=== PATIENT | female | born 1990 | race Caucasian/White ===

== ENCOUNTER 2017-03-09 02:26 | Emergency (ER) | payer OTHER ==
--- NOTE | 2017-03-09 03:36 | EDM.PDOC ---
ED HPI GENERAL MEDICAL PROBLEM - General Chief Complaint: Back Pain or Injury Stated Complaint: BODY ACHES Time Seen by Provider: 03/09/17 03:00 Source of Information: Reports: Patient History Limitations: Reports: No Limitations - History of Present Illness INITIAL COMMENTS - FREE TEXT/NARRATIVE: 18-year-old female who is been exposed to cryptosporidium from her daughter has developed symptoms over the past 4 days. Very watery diarrhea and abdominal cramps, no generalized malaise and lower back pain. She had spike fevers 2 days ago but those resolved, her diarrhea has now slowing down as well but she does not feel like she is overall improving. She had dark stools today but that was after several days of Kaopectate and Pepto-Bismol 3 days ago. Nausea but no vomiting. Severity: Moderate Associated Symptoms: Reports: Fever/Chills (2 days ago), Loss of Appetite, Nausea/Vomiting. 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 Denies: Vomiting : Reports: No Symptoms Musculoskeletal: Reports: Muscle Pain (Especially her lower back) Skin: Reports: No Symptoms Neurological: Reports: No Symptoms. Denies: Headache Psychiatric: Reports: No Symptoms ED EXAM, GENERAL - Physical Exam Exam: See Below Exam Limited By: No Limitations General Appearance: Alert, No Apparent Distress (Looks uncomfortable but not in any acute distress) Respiratory/Chest: No Respiratory Distress Cardiovascular: Regular Rate, Rhythm GI/Abdominal: Normal Bowel Sounds, Soft, Non-Tender Rectal (Female) Exam: Normal Exam, Heme - Stool Neurological: Alert, Oriented Skin Exam: Warm Course - Vital Signs Last Recorded V/S: Last Vital Signs Temp 98.8 F 03/09/17 02:40 Pulse 88 03/09/17 02:40 Resp 16 03/09/17 02:40 BP 123/78 03/09/17 02:40 Pulse Ox 97 03/09/17 02:40 - Orders/Labs/Meds Labs: Laboratory Tests 03/09/17 03/09/17 Range/Units 03:08 03:08 WBC 14.7 H (4.5-11.0) K/uL RBC 4.70 (3.30-5.50) M/uL Hgb 14.4 (12.0-15.0) g/dL Hct 42.4 (36.0-48.0) % MCV 90 (80-98) fL MCH 31 (27-31) pg MCHC 34 (32-36) % Plt Count 285 (150-400) K/uL Neut % (Auto) 88 H (36-66) % Lymph % (Auto) 5 L (24-44) % [place] % (Auto) 5 (2-6) % Eos % (Auto) 2 (2-4) % Baso % (Auto) 0 (0-1) % Sodium 135 L (140-148) mmol/L Potassium 3.2 L (3.6-5.2) mmol/L Chloride 103 (100-108) mmol/L Carbon Dioxide 24 (21-32) mmol/L Anion Gap 11.2 (5.0-14.0) mmol/L BUN 8 (7-18) mg/dL Creatinine 0.7 (0.6-1.0) mg/dL Est Cr Clr Drug Dosing 125.04 mL/min Estimated GFR (MDRD) > 60 (>60) Glucose 95 (74-106) mg/dL Calcium 8.4 L (8.5-10.1) mg/dL - Re-Assessments/Exams Free Text/Narrative Re-Assessment/Exam: 03/09/17 03:31 Stool guaiac was obtained and was negative. CBC revealed a mild increase in her white blood cell count of 14,700, hemoglobin normal. Potassium was 3.2. Remaining labs are reassuring. 03/09/17 03:36 After discussing the lab results with the patient, it was agreed we will discharge her with 6 Vicodin to use for pain control today along with sublingual Zofran for as needed nausea control. She will recheck in 48 hours if not improving satisfactorily or return sooner if worsening. Departure - Departure Time of Disposition: 04:12 Disposition: Home, Self-Care 01 Condition: Fair Clinical Impression: Gastroenteritis due to Cryptosporidium - Discharge Information Instructions: Diarrhea, Adult, [id number] Referrals: PCP,None [Primary Care Provider] - Forms: ED Department Discharge Care Plan Goals: Rest, increase diet as tolerated concentrating on fluids. Use pain control as prescribed and Zofran for nausea if needed. Consider rechecking in 48 hours if not improving satisfactorily, or return sooner if worsening.
== END 2017-03-09 04:12 | disposition home or self-care (01) ==
LOC: JP.ED 02:26
DX: A07.2 Cryptosporidiosis (principal); F32.9 Major depressive disorder, single episode, unspecified; F17.210 Nicotine dependence, cigarettes, uncomplicated
CPT/HCPCS: 36415; 80048; 82272; 85025; 99284

== ENCOUNTER 2018-01-02 22:39 | Emergency (ER) | payer OTHER, BC ==
--- NOTE | 2018-01-02 23:36 | EDM.PDOC ---
ED HPI GENERAL MEDICAL PROBLEM - General Chief Complaint: General Stated Complaint: PNEUMONIA Time Seen by Provider: 01/02/18 23:27 Source of Information: Reports: Patient, RN Notes Reviewed History Limitations: Reports: No Limitations - History of Present Illness INITIAL COMMENTS - FREE TEXT/NARRATIVE: 27-year-old female presents emergency department today complaint of not feeling well she has headache, body aches, nausea with dry heaving she denies any shortness of breath or chest pain no GI symptomatologies denies any tick exposure does admit to excessive work with poor oral intake Headache Pain Score (Numeric/FACES): 10 - Related Data Allergies Allergy/AdvReac Type Severity Reaction Status Date / Time No Known Allergies Allergy Verified 01/02/18 22:55 Home Meds: Home Meds Sertraline HCl 150 mg PO DAILY 03/09/17 [History] Dextroamphetamine/Amphetamine [Adderall 10 mg Tablet] 10 mg PO DAILY 01/02/18 [ History] Past Medical History HEENT History: Reports: Impaired Vision Respiratory History: Reports: Asthma 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: Musculoskeletal History: Reports: Fracture Neurological History: Reports: Concussion, Migraines Psychiatric History: Reports: Depression - Infectious Disease History Infectious Disease History: Reports: Chicken Pox, Mononucleosis Social & Family History - Tobacco Use Smoking Status *Q: Current Every Day Smoker Years of Tobacco use: 15 Packs/Tins Daily: 0.5 - Caffeine Use Caffeine Use: Reports: Coffee - Recreational Drug Use Recreational Drug Use: No ED ROS GENERAL - Review of Systems Review Of Systems: See Below Constitutional: Reports: Fever, Chills (Feverish) HEENT: Denies: Vision Change Respiratory: Reports: No Symptoms Cardiovascular: Reports: No Symptoms GI/Abdominal: Reports: Nausea, Vomiting : Reports: No Symptoms Musculoskeletal: Reports: Muscle Pain Skin: Reports: No Symptoms Neurological: Reports: No Symptoms ED EXAM, GENERAL - Physical Exam Exam: See Below Free Text/Narrative:: General: Female, ill-appearing, alert and oriented x3 HEENT: head is atraumatic normocephalic, eyes pupils equal round reactive to light, sclera clear no conjunctivitis appreciated. Ears tympanic membranes clear and pires landmarks and light reflex are present bilaterally canals are clear. Nose no septal deviation, nares are clear, no blood present. Mouth mucosa is moist and pink no erythema or exudate noted in soft palate, tongue is midline uvula is midline , dentition is intact. Neck: Supple no thyromegaly no tracheal deviation. Can place her chin on her chest no meningeal signs Nodes: Cervical nodes subclavicular nodes nontender no palpable lymphadenopathy noted. Lungs: clear to auscultation bilaterally with symmetrical respirations, no adventitious noise appreciated. CV: Regular rate and rhythm S1 and S2 appreciated no murmurs rubs or gallops noted. Abdomen: Soft, nontender, no palpable masses or organomegaly appreciated, no distention no guarding bowel sounds are present, . Neuro: Cranial nerves II through XII grossly intact Skin: Warm and dry, intact Extremities: No lower extremity edema appreciated, pedal pulse is +2. Course - Vital Signs Last Recorded V/S: Last Vital Signs Temp 99.6 F 01/03/18 00:57 Pulse 85 01/03/18 00:57 Resp 16 01/03/18 00:57 BP 120/67 01/03/18 00:57 Pulse Ox 96 01/03/18 00:57 - Orders/Labs/Meds Orders: Active Orders 24 hr Category Date Time Status Peripheral IV Care [RC] . DIRECTED Care 01/02/18 23:34 Active UA W/MICROSCOPIC [URIN] Urgent Lab 01/03/18 01:29 Ordered Doxycycline [Vibramycin] 100 mg Med 01/03/18 01:30 Active Sodium Chloride 0.9% [Normal Saline] 100 ml IV ONETIME Sodium Chloride 0.9% [Saline Flush] Med 01/02/18 23:34 Active 10 ml FLUSH ASDIRECTED PRN Peripheral IV Insertion Adult [OM.PC] Urgent Oth 01/02/18 23:33 Ordered Medication Orders Doxycycline Hyclate 100 mg/ (Sodium Chloride) 100 mls @ 100 mls/hr IV ONETIME ONE Stop: 01/03/18 02:29 Last Admin: 01/03/18 01:36 Dose: 100 mls/hr Sodium Chloride (Saline Flush) 10 ml FLUSH ASDIRECTED PRN PRN Reason: Keep Vein Open Last Admin: 01/03/18 00:02 Dose: 10 ml Labs: Laboratory Tests 01/02/18 01/02/18 01/03/18 Range/Units 23:42 23:42 01:29 WBC 13.2 H (4.5-11.0) K/uL RBC 4.39 (3.30-5.50) M/uL Hgb 13.4 (12.0-15.0) g/dL Hct 40.7 (36.0-48.0) % MCV 93 (80-98) fL MCH 31 (27-31) pg MCHC 33 (32-36) % Plt Count 327 (150-400) K/uL Neut % (Auto) 82 H (36-66) % Lymph % (Auto) 11 L (24-44) % [place] % (Auto) 6 (2-6) % Eos % (Auto) 1 L (2-4) % Baso % (Auto) 0 (0-1) % Sodium 138 L (140-148) mmol/L Potassium 3.7 (3.6-5.2) mmol/L Chloride 101 (100-108) mmol/L Carbon Dioxide 26 (21-32) mmol/L Anion Gap 14.7 H (5.0-14.0) mmol/L BUN 12 (7-18) mg/dL Creatinine 0.8 (0.6-1.0) mg/dL Est Cr Clr Drug Dosing 108.44 mL/min Estimated GFR (MDRD) > 60 (>60) Glucose 105 (74-106) mg/dL Calcium 8.8 (8.5-10.1) mg/dL Urine Color Yellow Urine Appearance Clear Urine pH 6.5 (4.5-8.0) Ur Specific [place] 1.010 (1.008-1.030) Urine Protein Negative (NEGATIVE) mg/dL Urine Glucose (UA) Normal (NEGATIVE) mg/dL Urine Ketones Negative (NEGATIVE) mg/dL Urine Occult Blood Negative (NEGATIVE) Urine Nitrite Negative (NEGATIVE) Urine Bilirubin Negative (NEGATIVE) Urine Urobilinogen Normal (NORMAL) mg/dL Ur Leukocyte Esterase Negative (NEGATIVE) Urine RBC 0-5 (0-5) Urine WBC 0-5 (0-5) Ur Epithelial Cells Few Amorphous Sediment Not seen Urine Bacteria Rare Urine Mucus Not seen Meds: Medications Generic Name Dose Route Start Last Admin Trade Name Freq PRN Reason Stop Dose Admin Doxycycline Hyclate 100 mg/ 100 mls @ 100 mls/hr 01/03/18 01:30 01/03/18 01: 36 Sodium Chloride IV 01/03/18 02:29 100 mls/hr ONETIME ONE Administration Sodium Chloride 10 ml 01/02/18 23:34 01/03/18 00:02 Saline Flush FLUSH 10 ml ASDIRECTED PRN Administration Keep Vein Open Discontinued Medications Generic Name Dose Route Start Last Admin Trade Name Pumaq PRN Reason Stop Dose Admin Diphenhydramine HCl 50 mg 01/02/18 23:34 01/03/18 00:01 Benadryl IVPUSH 01/02/18 23:35 50 mg ONETIME ONE Administration Lactated Ringer's 1,000 mls @ 999 mls/hr 01/02/18 23:33 01/03/18 00:01 Ringers, Lactated IV 01/03/18 00:33 999 mls/hr BOLUS ONE Administration Lactated Ringer's 1,000 mls @ 999 mls/hr 01/03/18 01:00 01/03/18 01:04 Ringers, Lactated IV 01/03/18 02:00 999 mls/hr BOLUS ONE Administration Ketorolac Tromethamine 30 mg 01/02/18 23:33 01/03/18 00:02 Toradol IVPUSH 01/02/18 23:34 30 mg ONETIME ONE Administration Prochlorperazine Edisylate 5 mg 01/02/18 23:34 01/03/18 00:02 Compazine IVPUSH 01/02/18 23:35 5 mg ONETIME ONE Administration Departure - Departure Time of Disposition: 02:30 Disposition: Home, Self-Care 01 Condition: Good Clinical Impression: Body aches, Tick-borne disease - Discharge Information Referrals: PCP,None [Primary Care Provider] - Forms: ED Department Discharge Additional Instructions: Take full course of antibiotics, Please followup with your primary care provider in 3-5 days if not better, please call return to the emergency department with worsening of symptoms. - My Orders Last 24 Hours: My Active Orders 01/02/18 23:33 Peripheral IV Insertion Adult [OM.PC] Urgent 01/02/18 23:34 Peripheral IV Care [RC] . DIRECTED Sodium Chloride 0.9% [Saline Flush] 10 ml FLUSH ASDIRECTED PRN 01/03/18 01:29 UA W/MICROSCOPIC [URIN] Urgent 01/03/18 01:30 Doxycycline [Vibramycin] 100 mg Sodium Chloride 0.9% [Normal Saline] 100 ml IV ONETIME - Assessment/Plan Last 24 Hours: My Active Orders 01/02/18 23:33 Peripheral IV Insertion Adult [OM.PC] Urgent 01/02/18 23:34 Peripheral IV Care [RC] . DIRECTED Sodium Chloride 0.9% [Saline Flush] 10 ml FLUSH ASDIRECTED PRN 01/03/18 01:29 UA W/MICROSCOPIC [URIN] Urgent 01/03/18 01:30 Doxycycline [Vibramycin] 100 mg Sodium Chloride 0.9% [Normal Saline] 100 ml IV ONETIME Plan: Assessment Acuity = acute Site and laterality = body aches, fever Etiology = suspicious for tickborne illness Manifestations = none Location of injury = Home Lab values = white count elevated at 13.2 consistent leukocytosis, BMP unremarkable, urinalysis unremarkable Plan She was treated with one dose of doxycycline 100 mg 1 prescription written for doxycycline 100 mg by mouth twice a day 14 days follow-up primary care in 3-5 days if no improvement This note was dictated using [employer] voice recognition software please call with any questions on syntax or grammar.
[2018-01-03] MEDS: diphenhydrAMINE 50 MG/ML SDV IVPUSH ONE (00:01)
[2018-01-03] MEDS: Lactated Ringers 1,000 ML IV ONE ×2 (00:01→01:04)
[2018-01-03] MEDS: Sodium Chloride 0.9% 10 ML Syringe FLUSH PRN (00:02)
[2018-01-03] MEDS: Prochlorperazine 10 MG/2 ML SDV IVPUSH ONE (00:02)
[2018-01-03] MEDS: Ketorolac 30 MG/ML SDV IVPUSH ONE (00:02)
[2018-01-03] MEDS: Doxycycline 100 MG in Sodium Chloride 0.9% 100 ML IV ONE (01:36)
== END 2018-01-03 02:50 | disposition home or self-care (01) ==
LOC: JP.ED 22:39
DX: A93.8 Other specified arthropod-borne viral fevers (principal); F17.210 Nicotine dependence, cigarettes, uncomplicated
CPT/HCPCS: 36415; 80048; 81001; 85025; 96361; 96365; 96375; 99284-25; J0780; J1200; J1885; J3490; J7030; J7050; J7120

== ENCOUNTER 2018-01-03 10:43 | Inpatient (IN) | payer OTHER, BC ==
[2018-01-03] MEDS ORDERED: Sodium Chloride 0.9% 1,000 ML IV ONE (11:11)
[2018-01-03] MEDS ORDERED: HYDROmorphone 0.5 MG/0.5 ML Syringe IVPUSH ONE ×2 (11:11→13:42)
--- NOTE | 2018-01-03 11:17 | EDM.PDOC ---
ED HPI GENERAL MEDICAL PROBLEM - General Chief Complaint: General Stated Complaint: head and neck pain Time Seen by Provider: 01/03/18 11:05 Source of Information: Reports: Patient, Provider History Limitations: Reports: No Limitations - History of Present Illness INITIAL COMMENTS - FREE TEXT/NARRATIVE: 27-year-old female developed generalized malaise, body aches, headache and fever yesterday afternoon, was seen in the emergency room last night for an evaluation. She was started on doxycycline for suspected tick disease. She was feeling better after medications were given last night, but she was worse this morning so went over to the urgent care clinic and then was sent over to the emergency room. Her headache is persistent, frontal, she is nauseated but not vomiting. She denies a cough, shortness of breath, abdominal symptoms, rashes or joint pains. She does have generalized muscle discomfort. 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 History: Reports: Asthma 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: Musculoskeletal History: Reports: Fracture Neurological History: Reports: Concussion, Migraines Psychiatric History: Reports: Depression - Infectious Disease History Infectious Disease History: Reports: Chicken Pox, Mononucleosis Social & Family History - Tobacco Use Smoking Status *Q: Current Every Day Smoker Years of Tobacco use: 12 Packs/Tins Daily: 0.5 - Caffeine Use Caffeine Use: Reports: Coffee - Recreational Drug Use Recreational Drug Use: No ED ROS GENERAL - Review of Systems Review Of Systems: See Below Constitutional: Reports: Fever, Chills, Malaise, Decreased Appetite HEENT: Reports: Other (Some photophobia) Respiratory: Reports: No Symptoms Cardiovascular: Reports: No Symptoms GI/Abdominal: Reports: Nausea. Denies: Abdominal Pain, Diarrhea, Vomiting : Reports: No Symptoms Musculoskeletal: Reports: Neck Pain, Muscle Pain Skin: Denies: Rash Neurological: Reports: Headache. Denies: Dizziness ED EXAM, GENERAL - Physical Exam Exam: See Below Exam Limited By: No Limitations General Appearance: Alert, Mild Distress (Looks fairly uncomfortable) Eye Exam: Bilateral Eye: EOMI, PERRL Head: Atraumatic Neck: Limited Range of Motion (Tender with flexion and extension even passively) Respiratory/Chest: No Respiratory Distress GI/Abdominal: Soft, Non-Tender Neurological: Alert, Oriented, No Motor/Sensory Deficits Skin Exam: Warm, Dry Course - Vital Signs Last Recorded V/S: Last Vital Signs Temp 96.2 F 01/04/18 07:49 Pulse 73 01/04/18 10:00 Resp 13 01/04/18 10:00 BP 98/53 L 01/04/18 10:00 Pulse Ox 98 01/04/18 10:00 - Orders/Labs/Meds Orders: Active Orders 24 hr Category Date Time Status CULTURE CSF + SMEAR [RM] Stat Lab 01/03/18 12:36 Ordered ENTEROVIRUS RT-PCR Routine Lab 01/03/18 14:05 Received GLUCOSE,CSF [BF] Stat Lab 01/03/18 12:36 COMP HSV 1/2 PCR Routine Lab 01/03/18 14:05 Received LYME (B. BURGDORFERI) PCR Routine Lab 01/03/18 14:05 Received PROTEIN,CSF [BF] Stat Lab 01/03/18 12:36 COMP Medication Orders Acetaminophen (Tylenol) 650 mg PO Q4H PRN PRN Reason: Pain (Mild 1-3)/fever Last Admin: 01/04/18 07:44 Dose: 650 mg Admin: 01/04/18 03:26 Dose: 650 mg Admin: 01/03/18 21:15 Dose: 650 mg Admin: 01/03/18 15:48 Dose: 650 mg Hydromorphone HCl (Dilaudid) 0.5 mg IVPUSH Q2H PRN PRN Reason: Pain Last Admin: 01/04/18 08:39 Dose: 0.5 mg Admin: 01/04/18 04:00 Dose: 0.5 mg Admin: 01/04/18 02:02 Dose: 0.5 mg Admin: 01/03/18 23:58 Dose: 0.5 mg Admin: 01/03/18 21:52 Dose: 0.5 mg Admin: 01/03/18 20:02 Dose: 0.5 mg Admin: 01/03/18 16:46 Dose: 0.5 mg Acyclovir 800 mg/ Sodium (Chloride) 116 mls @ 116 mls/hr IV Q8H [facility] Last Admin: 01/04/18 07:28 Dose: 116 mls/hr Admin: 01/03/18 23:16 Dose: 116 mls/hr Admin: 01/03/18 16:42 Dose: 116 mls/hr Ceftriaxone Sodium 2 gm/ (Sodium Chloride) 50 mls @ 100 mls/hr IV Q12H [facility] Last Admin: 01/04/18 01:01 Dose: 100 mls/hr Vancomycin HCl 1.25 gm/ Sodium (Chloride) 250 mls @ 167 mls/hr IV Q8H [facility] Last Admin: 01/04/18 06:02 Dose: 167 mls/hr Admin: 01/03/18 21:10 Dose: 167 mls/hr Magnesium Sulfate 2 gm/ Premix 50 mls @ 25 mls/hr IV ONETIME ONE Stop: 01/04/18 11:59 Last Admin: 01/04/18 09:05 Dose: 25 mls/hr Sodium Chloride (Normal Saline) 1,000 mls @ 50 mls/hr IV ASDIRECTED [facility] Magnesium Hydroxide (Milk Of Magnesia) 30 ml PO Q12H PRN PRN Reason: Constipation Magnesium Oxide (Magnesium Oxide) 400 mg PO BID [facility] Last Admin: 01/04/18 09:05 Dose: 400 mg Nicotine (Habitrol) 14 mg TRDERM DAILY [facility] Last Admin: 01/04/18 10:06 Dose: Not Given Admin: 01/03/18 16:03 Dose: Ondansetron HCl (Zofran) 4 mg IV Q4H PRN PRN Reason: Nausea/Vomiting Last Admin: 01/04/18 01:01 Dose: 4 mg Senna/Docusate Sodium (Senna Plus) 1 tab PO BID PRN PRN Reason: Constipation Last Admin: 01/04/18 09:05 Dose: 1 tab Sodium Chloride (Saline Flush) 10 ml FLUSH ASDIRECTED PRN PRN Reason: Keep Vein Open Last Admin: 01/04/18 08:40 Dose: 10 ml Labs: Laboratory Tests 01/03/18 01/03/18 01/03/18 Range/Units 11:11 12:36 12:36 WBC 11.0 (4.5-11.0) K/uL RBC 4.12 (3.30-5.50) M/uL Hgb 12.5 (12.0-15.0) g/dL Hct 38.6 (36.0-48.0) % MCV 94 (80-98) fL MCH 30 (27-31) pg MCHC 32 (32-36) % Plt Count 314 (150-400) K/uL Neut % (Auto) 79 H (36-66) % Lymph % (Auto) 12 L (24-44) % [place] % (Auto) 8 H (2-6) % Eos % (Auto) 1 L (2-4) % Baso % (Auto) 0 (0-1) % CSF Tube Number 4 CSF Volume 0.5 mls CSF Appearance Clear (CLEAR) CSF Color [place] (COLORLESS) CSF WBC 122 H (0-5) /ul CSF RBC 2129 H (0-0) /ul CSF Mononuclear Cells 24 L (54-100) % CSF Polymorphonuclear 76 H (0-7) % CSF Glucose 63 (40-70) mg/dL CSF Total Protein 71.0 H (15-45) mg/dL Meds: Medications Generic Name Dose Route Start Last Admin Trade Name Freq PRN Reason Stop Dose Admin Acetaminophen 650 mg 01/03/18 15:05 01/04/18 07:44 Tylenol PO 650 mg Q4H PRN Administration Pain (Mild 1-3)/fever Hydromorphone HCl 0.5 mg 01/03/18 15:05 01/04/18 08:39 Dilaudid IVPUSH 0.5 mg Q2H PRN Administration Pain Acyclovir 800 mg/ Sodium 116 mls @ 116 mls/hr 01/03/18 15:30 01/04/18 07:28 Chloride IV 116 mls/hr Q8H [facility] Administration Ceftriaxone Sodium 2 gm/ 50 mls @ 100 mls/hr 01/04/18 02:00 01/04/18 01:01 Sodium Chloride IV 100 mls/hr Q12H [facility] Administration Vancomycin HCl 1.25 gm/ Sodium 250 mls @ 167 mls/hr 01/03/18 22:00 01/04/18 06:02 Chloride IV 167 mls/hr Q8H [facility] Administration Magnesium Sulfate 2 gm/ Premix 50 mls @ 25 mls/hr 01/04/18 10:00 01/04/18 09: 05 IV 01/04/18 11:59 25 mls/hr ONETIME ONE Administration Sodium Chloride 1,000 mls @ 50 mls/hr 01/04/18 08:45 Normal Saline IV ASDIRECTED [facility]ONATHAN Magnesium Hydroxide 30 ml 01/03/18 15:05 Milk Of Magnesia PO Q12H PRN Constipation Magnesium Oxide 400 mg 01/04/18 09:00 01/04/18 09:05 Magnesium Oxide PO 400 mg BID [facility] Administration Nicotine 14 mg 01/03/18 16:00 01/04/18 10:06 Habitrol TRDERM Not Given DAILY [facility] Ondansetron HCl 4 mg 01/03/18 15:05 01/04/18 01:01 Zofran IV 4 mg Q4H PRN Administration Nausea/Vomiting Senna/Docusate Sodium 1 tab 01/04/18 08:37 01/04/18 09:05 Senna Plus PO 1 tab BID PRN Administration Constipation Sodium Chloride 10 ml 01/03/18 15:05 01/04/18 08:40 Saline Flush FLUSH 10 ml ASDIRECTED PRN Administration Keep Vein Open Discontinued Medications Generic Name Dose Route Start Last Admin Trade Name Freq PRN Reason Stop Dose Admin Hydromorphone HCl 0.5 mg 01/03/18 11:11 01/03/18 11:22 Dilaudid IVPUSH 01/03/18 11:12 0.5 mg ONETIME ONE Administration Hydromorphone HCl 0.5 mg 01/03/18 13:42 01/03/18 13:54 Dilaudid IVPUSH 01/03/18 13:43 0.5 mg ONETIME ONE Administration Sodium Chloride 1,000 mls @ 999 mls/hr 01/03/18 11:11 01/03/18 11:23 Normal Saline IV 01/03/18 12:11 999 mls/hr ONETIME ONE Administration Ceftriaxone Sodium 1 gm/ 50 mls @ 100 mls/hr 01/03/18 13:12 01/03/18 13:17 Sodium Chloride IV 01/03/18 13:41 100 mls/hr ONETIME ONE Administration Ceftriaxone Sodium 1 gm/ 50 mls @ 100 mls/hr 01/03/18 13:21 01/03/18 13:55 Sodium Chloride IV 01/03/18 13:50 100 mls/hr ONETIME ONE Administration Vancomycin HCl 2 gm/ Sodium 500 mls @ 250 mls/hr 01/03/18 14:45 01/03/18 14: 39 Chloride IV 01/03/18 16:44 250 mls/hr ONETIME ONE Administration Sodium Chloride 1,000 mls @ 125 mls/hr 01/03/18 15:05 01/04/18 04:00 Normal Saline IV 125 mls/hr ASDIRECTED [facility]ONATHAN Administration Vancomycin HCl 1 gm 01/03/18 15:00 Vancomycin IV 01/03/18 16:00 .PHARMACY TO DOSE [facility]HONATHAN - Re-Assessments/Exams Free Text/Narrative Re-Assessment/Exam: 01/03/18 13:09 Patient was hydrated with a liter of fluid, and given 0.5 mg of IV Dilaudid. This provided very good pain control. CBC revealed now a normal white count. CT of the head was obtained which was negative, lumbar puncture was performed with an opening pressure of 26. There was no bacteria on Gram stain, however her protein was high and there was elevation of neutrophils percentage of the white count. 01/03/18 13:21 Reevaluated the patient, she still has a very significant headache. 2 g Rocephin were started, and I discussed her condition with the hospitalist service, and Dr. Xiao agreed to evaluate the patient for possible admission. Departure - Departure Time of Disposition: 15:16 Disposition: Admitted As Inpatient 64 Condition: Fair Clinical Impression: Meningitis - Discharge Information - My Orders Last 24 Hours: My Active Orders 01/03/18 12:36 CULTURE CSF + SMEAR [RM] Stat GLUCOSE,CSF [BF] Stat PROTEIN,CSF [BF] Stat - Assessment/Plan Last 24 Hours: My Active Orders 01/03/18 12:36 CULTURE CSF + SMEAR [RM] Stat GLUCOSE,CSF [BF] Stat PROTEIN,CSF [BF] Stat
--- NOTE | 2018-01-03 12:52 | CT ---
Head wo Cont CLINICAL HISTORY: Headache and fever COMPARISON: None TECHNIQUE: Transverse scans were obtained from the base of the skull through the vertex without IV co ntrast on a multislice, multidetector CT scanner. Auto dosage reduction and iterative reconstruction techniques employed. FINDINGS: No focal abnormal parenchymal densities identified. There is no mass effect, hemorrhage, or extraaxial collection. There is some prominence and generalized heterogeneity of the white matter Th e basal cisterns and sulci over the convexities are normal. The ventricles are normal. IMPRESSION: Generalized nonspecific, white matter heterogeneity. Active white matter process cannot be excluded. MRI pre and postcontrast should be considered.
[2018-01-03] MEDS ORDERED: cefTRIAXone 1 GM in Sodium Chloride 0.9% 50 ML IV ONE ×2 (13:12→13:21)
[2018-01-03] MEDS ORDERED: Vancomycin 1.7 GM in Sodium Chloride 0.9% 250 ML IV ONE (14:45)
[2018-01-03] MEDS ORDERED: Vancomycin 2 GM in Sodium Chloride 0.9% 500 ML IV ONE (14:45)
--- NOTE | 2018-01-03 14:58 | PCM.HP ---
H&P History of Present Illness - General Date of Service: 01/03/18 Admit Problem/Dx: Admission Diagnosis/Problem Admission Diagnosis/Problem Meningitis Source of Information: Patient, Provider, RN Notes Reviewed History Limitations: Reports: No Limitations - History of Present Illness Initial Comments - Free Text/Narative: Ms. Gatica is a 27-year-old woman who is admitted through the emergency department with severe headache and neck stiffness secondary to meningitis. She felt well until yesterday, about midday began to notice symptoms of headache and some nausea. Symptoms progressed through the day and she presented to the emergency department last night for further evaluation. At that time her white blood cell count was only modestly elevated and she felt better after IV fluids and pain medication. Was felt likely that she had Lyme disease, she was placed on doxycycline 100 mg by mouth twice a day. Symptoms further progressed during the night to where her headache has become extremely severe and she came back to the emergency department this morning for reevaluation. White blood cell count has now normalized, she has been afebrile with normal vital signs. CT scan of the head was obtained and showed no significant abnormalities. Lumbar puncture has been performed, showing mild elevation in protein level and white blood cell count, and a glucose level of 63. Gram stain shows no obvious bacteria, culture pending. She has had exposure to Lyme disease in the past but denies recent tick bites. She denies recent exposure to anybody with similar symptoms and has not traveled outside of [place] for some time. 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 Denies: Fever, Chills HEENT: Reports: No Symptoms, Other (No photophobia) Pulmonary: Reports: No Symptoms Cardiovascular: Reports: No Symptoms Gastrointestinal: Reports: Anorexia, Nausea. Denies: Abdominal Pain, Black Stool, Bloody Stool, Constipation, Diarrhea, Difficulty Swallowing, Distension, Vomiting Genitourinary: Reports: No Symptoms Musculoskeletal: Reports: Neck Pain Skin: Reports: No Symptoms Psychiatric: Reports: No Symptoms Neurological: Reports: No Symptoms Hematologic/Lymphatic: Reports: No Symptoms Immunologic: Reports: No Symptoms Exam - Exam Exam: See Below - Vital Signs Vital Signs: Last Vital Signs Temp 99 F 01/03/18 11:01 Pulse 71 01/03/18 13:50 Resp 16 01/03/18 13:50 BP 110/59 L 01/03/18 13:50 Pulse Ox 98 01/03/18 13:50 Weight: 183 lb 10.321 oz - Exam General: Alert, Oriented, Cooperative, Moderate Distress HEENT: PERRLA, Conjunctiva Clear, Hearing Intact, Mucosa Moist & [place], Normal Nasal Septum, Posterior Pharynx Clear Neck: Supple, Trachea Midline, +2 Carotid Pulse wo Bruit Lungs: Clear to Auscultation, Normal Respiratory Effort, Other (Pain to flexion) Cardiovascular: Regular Rate, Regular Rhythm, Normal S1, Normal S2. No: Systolic Murmur, Diastolic Murmur GI/Abdominal Exam: Soft, Non-Tender, No Organomegaly, No Distention Back Exam: Normal Inspection, Full Range of Motion Extremities: Non-Tender, No Pedal Edema Skin: Warm, Dry, Intact Neurological: Cranial Nerves Intact, Strength Equal Bilateral, Normal Speech, Normal Tone, Sensation Intact. No: Focal Deficit Neuro Extensive - Mental Status: Alert, Oriented x3, Normal Mood/Affect, Normal Cognition, Memory Intact - Patient Data Lab Results Last 24 hrs: Laboratory Results - last 24 hr 01/03/18 01/03/18 01/03/18 Range/Units 11:11 12:36 12:36 WBC 11.0 (4.5-11.0) K/uL RBC 4.12 (3.30-5.50) M/uL Hgb 12.5 (12.0-15.0) g/dL Hct 38.6 (36.0-48.0) % MCV 94 (80-98) fL MCH 30 (27-31) pg MCHC 32 (32-36) % Plt Count 314 (150-400) K/uL Neut % (Auto) 79 H (36-66) % Lymph % (Auto) 12 L (24-44) % [place] % (Auto) 8 H (2-6) % Eos % (Auto) 1 L (2-4) % Baso % (Auto) 0 (0-1) % CSF Tube Number 4 CSF Volume 0.5 mls CSF Appearance Clear (CLEAR) CSF Color [place] (COLORLESS) CSF WBC 122 H (0-5) /ul CSF RBC 2129 H (0-0) /ul CSF Mononuclear Cells 24 L (54-100) % CSF Polymorphonuclear 76 H (0-7) % CSF Glucose 63 (40-70) mg/dL CSF Total Protein 71.0 H (15-45) mg/dL Result Diagrams: 01/03/18 11:11 [place] Results Last 24 hrs: Microbiology 01/03/18 12:36 Gram Stain - Final Cerebral Spinal Fluid *Q Meaningful Use (ADM) - VTE Risk Assess *Q Each Risk Factor Represents 1 Point: None Total Score 1 Point Risk Factors: 0 Each Risk Factor Represents 2 Points: None Total Score 2 Point Risk Factors: 0 Each Risk Factor Represents 3 Points: None Total Score 3 Point Risk Factors: 0 Each Risk Factor Represents 5 Points: None Total Score 5 Point Risk Factors: 0 Venous Thromboembolism Risk Factor Score *Q: 0 Problem List Initiated/Reviewed/Updated: Yes Orders Last 24hrs: Active Orders 24 hr Category Date Time Status Patient Status Manage Transfer [TRANSFER] Routine ADT 01/03/18 14:24 Active CELL COUNT,CSF [BF] Stat Lab 01/03/18 12:36 Ordered CULTURE CSF + SMEAR [RM] Stat Lab 01/03/18 12:36 Ordered ENTEROVIRUS RT-PCR Routine Lab 01/03/18 14:05 Received GLUCOSE,CSF [BF] Stat Lab 01/03/18 12:36 COMP HSV 1/2 PCR Routine Lab 01/03/18 14:05 Received LYME (B. BURGDORFERI) PCR Routine Lab 01/03/18 14:05 Received PROTEIN,CSF [BF] Stat Lab 01/03/18 12:36 COMP Acyclovir [Zovirax] 800 mg Med 01/03/18 14:50 Ordered Sodium Chloride 0.9% [Normal Saline] 100 ml IV Q8HR Vancomycin Med 01/03/18 15:00 Active 1 gm IV .PHARMACY TO DOSE Vancomycin 2 gm Med 01/03/18 14:45 Active Sodium Chloride 0.9% [Normal Saline] 500 ml IV ONETIME Resuscitation Status Routine Resus Stat 01/03/18 14:25 Ordered Medication Orders Vancomycin HCl 2 gm/ Sodium (Chloride) 500 mls @ 250 mls/hr IV ONETIME ONE Stop: 01/03/18 16:44 Last Admin: 01/03/18 14:39 Dose: 250 mls/hr Acyclovir 800 mg/ Sodium (Chloride) 116 mls @ 116 mls/hr IV Q8HR JHONATHAN Vancomycin HCl (Vancomycin) 1 gm IV .PHARMACY TO DOSE JHONATHAN Stop: 01/03/18 16:00 Assessment/Plan Comment:: ASSESSMENT AND PLAN MENINGITIS-severe headache with neck stiffness, no decreased level of consciousness or focal neurologic findings. CSF results are indeterminate. Possible viral versus Lyme disease, less likely bacterial or herpes. -CSF culture pending -CSF PCR for herpes, Lymes, and enterovirus pending -IV fluids for hydration -Admit to ICU for close monitoring -Pain medication as needed -Neuro checks every 2 hours -Acyclovir 800 mg IV every 8 hours pending herpes virus PCR -IV vancomycin and Rocephin 2 g every 12 hours pending CSF culture results MAINTENANCE ISSUES -DVT prophylaxis; not required -GI prophylaxis; not indicated -Mccurdy catheter; not indicated -Nutrition; regular diet -Nicotine dependence; 14 g nicotine patch CODE STATUS-FULL CODE ADMISSION STATUS-patient will be admitted to inpatient status, expect at least a 2 night hospital stay for evaluation and management of problems as outlined above. At the time of this admission I do not reasonably expected evaluation and management of this problem will require more than a 96 hour hospital stay. DISPOSITION-anticipate discharge to home after the hospital stay. PRIMARY CARE PROVIDER-
[2018-01-03] MEDS ORDERED: Vancomycin 1 GM SDV IV SCH (15:00)
[2018-01-03] MEDS: Acetaminophen 325 MG Tab PO PRN ×2 (15:48→21:15)
[2018-01-03] MEDS: Sodium Chloride 0.9% 1,000 ML IV SCH (16:01)
[2018-01-03] MEDS: Nicotine 14 MG/24 Hr Patch TRDERM SCH (16:03)
[2018-01-03] MEDS: HYDROmorphone 0.5 MG/0.5 ML Syringe IVPUSH PRN ×4 (16:46→23:58)
[2018-01-04] MEDS: cefTRIAXone 2 GM in Sodium Chloride 0.9% 50 ML IV SCH ×2 (01:01→13:27)
[2018-01-04] MEDS: Ondansetron 4 MG/2 ML SDV IV PRN ×2 (01:01→14:12)
[2018-01-04] MEDS: HYDROmorphone 0.5 MG/0.5 ML Syringe IVPUSH PRN ×7 (02:02→21:43)
[2018-01-04] MEDS: Acetaminophen 325 MG Tab PO PRN ×4 (03:26→19:23)
[2018-01-04] MEDS: Sodium Chloride 0.9% 1,000 ML IV SCH (04:00)
[2018-01-04] MEDS: Sodium Chloride 0.9% 10 ML Syringe FLUSH PRN ×2 (08:40→17:23)
--- NOTE | 2018-01-04 08:41 | PCM.PN ---
- General Info Date of Service: 01/04/18 Subjective Update: Ms. Gatica has improved since admission, headache is not resolved but has improved from yesterday. Vital signs have been good and she has remained afebrile. CSF cultures and other studies are still pending at this time. Functional Status: Reports: Pain Controlled, Urinating - Review of Systems General: Reports: Weakness. Denies: Fever, Chills Pulmonary: Reports: No Symptoms Cardiovascular: Reports: No Symptoms Gastrointestinal: Reports: Nausea. Denies: Abdominal Pain, Difficulty Swallowing, Vomiting - Patient Data Vitals - Most Recent: Last Vital Signs Temp 96.2 F 01/04/18 07:49 Pulse 75 01/04/18 07:49 Resp 12 01/04/18 07:49 BP 101/56 L 01/04/18 07:49 Pulse Ox 98 01/04/18 07:49 Weight - Most Recent: 183 lb 10.321 oz I&O - Last 24 Hours: Intake & Output 01/03/18 01/04/18 01/04/18 22:59 06:59 14:59 Intake Total 627 1641 116 Output Total 650 450 350 Balance -23 1191 -234 Lab Results Last 24 Hours: Laboratory Results - last 24 hr 01/03/18 01/03/18 01/03/18 Range/Units 11:11 12:36 12:36 WBC 11.0 (4.5-11.0) K/uL RBC 4.12 (3.30-5.50) M/uL Hgb 12.5 (12.0-15.0) g/dL Hct 38.6 (36.0-48.0) % MCV 94 (80-98) fL MCH 30 (27-31) pg MCHC 32 (32-36) % Plt Count 314 (150-400) K/uL Neut % (Auto) 79 H (36-66) % Lymph % (Auto) 12 L (24-44) % [place] % (Auto) 8 H (2-6) % Eos % (Auto) 1 L (2-4) % Baso % (Auto) 0 (0-1) % Sodium (140-148) mmol/L Potassium (3.6-5.2) mmol/L Chloride (100-108) mmol/L Carbon Dioxide (21-32) mmol/L Anion Gap (5.0-14.0) mmol/L BUN (7-18) mg/dL Creatinine (0.6-1.0) mg/dL Est Cr Clr Drug Dosing mL/min Estimated GFR (MDRD) (>60) Glucose (74-106) mg/dL Calcium (8.5-10.1) mg/dL Magnesium (1.8-2.4) mg/dL Total Bilirubin (0.2-1.0) mg/dL AST (15-37) U/L ALT (12-78) U/L Alkaline Phosphatase (46-116) U/L Total Protein (6.4-8.2) g/dL Albumin (3.4-5.0) g/dL Globulin (2.3-3.5) g/dL Albumin/Globulin Ratio (1.2-2.2) HCG, Qual CSF Tube Number 4 CSF Volume 0.5 mls CSF Appearance Clear (CLEAR) CSF Color [place] (COLORLESS) CSF WBC 122 H (0-5) /ul CSF RBC 2129 H (0-0) /ul CSF Mononuclear Cells 24 L (54-100) % CSF Polymorphonuclear 76 H (0-7) % CSF Glucose 63 (40-70) mg/dL CSF Total Protein 71.0 H (15-45) mg/dL 01/03/18 01/04/18 01/04/18 Range/Units 15:05 04:32 04:32 WBC 9.3 (4.5-11.0) K/uL RBC 3.48 (3.30-5.50) M/uL Hgb 10.7 L (12.0-15.0) g/dL Hct 33.2 L (36.0-48.0) % MCV 95 (80-98) fL MCH 31 (27-31) pg MCHC 32 (32-36) % Plt Count 242 (150-400) K/uL Neut % (Auto) 77 H (36-66) % Lymph % (Auto) 14 L (24-44) % [place] % (Auto) 7 H (2-6) % Eos % (Auto) 2 (2-4) % Baso % (Auto) 0 (0-1) % Sodium 138 L (140-148) mmol/L Potassium 3.9 (3.6-5.2) mmol/L Chloride 105 (100-108) mmol/L Carbon Dioxide 26 (21-32) mmol/L Anion Gap 10.9 (5.0-14.0) mmol/L BUN 5 L D (7-18) mg/dL Creatinine 0.6 (0.6-1.0) mg/dL Est Cr Clr Drug Dosing 144.58 mL/min Estimated GFR (MDRD) > 60 (>60) Glucose 105 (74-106) mg/dL Calcium 7.8 L (8.5-10.1) mg/dL Magnesium 1.7 L (1.8-2.4) mg/dL Total Bilirubin 0.4 (0.2-1.0) mg/dL AST 13 L (15-37) U/L ALT 21 (12-78) U/L Alkaline Phosphatase 43 L (46-116) U/L Total Protein 5.1 L (6.4-8.2) g/dL Albumin 2.7 L (3.4-5.0) g/dL Globulin 2.4 (2.3-3.5) g/dL Albumin/Globulin Ratio 1.1 L (1.2-2.2) HCG, Qual Negative CSF Tube Number CSF Volume mls CSF Appearance (CLEAR) CSF Color (COLORLESS) CSF WBC (0-5) /ul CSF RBC (0-0) /ul CSF Mononuclear Cells (54-100) % CSF Polymorphonuclear (0-7) % CSF Glucose (40-70) mg/dL CSF Total Protein (15-45) mg/dL [place] Results Last 24 Hours: Microbiology 01/03/18 12:36 Gram Stain - Final Cerebral Spinal Fluid Med Orders - Current: Current Medications Acetaminophen (Tylenol) 650 mg PO Q4H PRN PRN Reason: Pain (Mild 1-3)/fever Last Admin: 01/04/18 07:44 Dose: 650 mg Hydromorphone HCl (Dilaudid) 0.5 mg IVPUSH Q2H PRN PRN Reason: Pain Last Admin: 01/04/18 04:00 Dose: 0.5 mg Acyclovir 800 mg/ Sodium (Chloride) 116 mls @ 116 mls/hr IV Q8H JHONATHAN Last Admin: 01/04/18 07:28 Dose: 116 mls/hr Ceftriaxone Sodium 2 gm/ (Sodium Chloride) 50 mls @ 100 mls/hr IV Q12H JHONATHAN Last Admin: 01/04/18 01:01 Dose: 100 mls/hr Vancomycin HCl 1.25 gm/ Sodium (Chloride) 250 mls @ 167 mls/hr IV Q8H ON LICENSE OF [facility] Last Admin: 01/04/18 06:02 Dose: 167 mls/hr Magnesium Sulfate 2 gm/ Premix 50 mls @ 25 mls/hr IV ONETIME ONE Stop: 01/04/18 10:07 Sodium Chloride (Normal Saline) 1,000 mls @ 50 mls/hr IV ASDIRECTED ON LICENSE OF [facility] Magnesium Hydroxide (Milk Of Magnesia) 30 ml PO Q12H PRN PRN Reason: Constipation Magnesium Oxide (Magnesium Oxide) 400 mg PO BID ON LICENSE OF [facility] Nicotine (Habitrol) 14 mg TRDERM DAILY ON LICENSE OF [facility] Last Admin: 01/03/18 16:03 Dose: Not Given Ondansetron HCl (Zofran) 4 mg IV Q4H PRN PRN Reason: Nausea/Vomiting Last Admin: 01/04/18 01:01 Dose: 4 mg Senna/Docusate Sodium (Senna Plus) 1 tab PO BID PRN PRN Reason: Constipation Sodium Chloride (Saline Flush) 10 ml FLUSH ASDIRECTED PRN PRN Reason: Keep Vein Open Discontinued Medications Hydromorphone HCl (Dilaudid) 0.5 mg IVPUSH ONETIME ONE Stop: 01/03/18 11:12 Last Admin: 01/03/18 11:22 Dose: 0.5 mg Hydromorphone HCl (Dilaudid) 0.5 mg IVPUSH ONETIME ONE Stop: 01/03/18 13:43 Last Admin: 01/03/18 13:54 Dose: 0.5 mg Sodium Chloride (Normal Saline) 1,000 mls @ 999 mls/hr IV ONETIME ONE Stop: 01/03/18 12:11 Last Admin: 01/03/18 11:23 Dose: 999 mls/hr Ceftriaxone Sodium 1 gm/ (Sodium Chloride) 50 mls @ 100 mls/hr IV ONETIME ONE Stop: 01/03/18 13:41 Last Admin: 01/03/18 13:17 Dose: 100 mls/hr Ceftriaxone Sodium 1 gm/ (Sodium Chloride) 50 mls @ 100 mls/hr IV ONETIME ONE Stop: 01/03/18 13:50 Last Admin: 01/03/18 13:55 Dose: 100 mls/hr Vancomycin HCl 2 gm/ Sodium (Chloride) 500 mls @ 250 mls/hr IV ONETIME ONE Stop: 01/03/18 16:44 Last Admin: 01/03/18 14:39 Dose: 250 mls/hr Sodium Chloride (Normal Saline) 1,000 mls @ 125 mls/hr IV ASDIRECTED ON LICENSE OF [facility] Last Admin: 01/04/18 04:00 Dose: 125 mls/hr Vancomycin HCl (Vancomycin) 1 gm IV .PHARMACY TO DOSE JHONATHAN Stop: 01/03/18 16:00 - Exam General: Alert, Oriented, Cooperative, Mild Distress Lungs: Clear to Auscultation, Normal Respiratory Effort Cardiovascular: Regular Rate, Regular Rhythm, No Murmurs GI/Abdominal Exam: Soft, Non-Tender, No Organomegaly, No Distention Extremities: Non-Tender, No Pedal Edema Skin: Warm, Dry - Problem List Review Problem List Initiated/Reviewed/Updated: Yes - My Orders Last 24 Hours: My Active Orders 01/03/18 14:05 ENTEROVIRUS RT-PCR Routine HSV 1/2 PCR Routine LYME (B. BURGDORFERI) PCR Routine 01/03/18 14:25 Resuscitation Status Routine 01/03/18 15:05 Patient Status [ADT] Routine Ambulate [RC] QID Cardiac Monitoring [RC] .As Directed Height and Weight [RC] DAILY Intake and Output [RC] QSHIFT Neuro Check [RC] Q2H Notify Provider Vital Signs [RC] ASDIRECTED Peripheral IV Care [RC] . DIRECTED Pulse Oximetry [RC] CONTINUOUS Up With Assistance [RC] ASDIRECTED Up to Chair [RC] QID VTE/DVT Education [RC] Per Unit Routine Vital Signs [RC] Q2H Acetaminophen [Tylenol] 650 mg PO Q4H PRN HYDROmorphone [Dilaudid] 0.5 mg IVPUSH Q2H PRN Magnesium Hydroxide [Milk of Magnesia] 30 ml PO Q12H PRN Ondansetron [Zofran] 4 mg IV Q4H PRN Sodium Chloride 0.9% [Saline Flush] 10 ml FLUSH ASDIRECTED PRN Peripheral IV Insertion Adult [OM.PC] Routine 01/03/18 15:30 Acyclovir [Zovirax] 800 mg Sodium Chloride 0.9% [Normal Saline] 100 ml IV Q8H 01/03/18 16:00 Nicotine [Habitrol] 14 mg TRDERM DAILY 01/03/18 22:00 Vancomycin 1.25 gm Sodium Chloride 0.9% [Normal Saline] 250 ml IV Q8H 01/03/18 Lunch Regular Diet [DIET] 01/04/18 02:00 cefTRIAXone [Rocephin] 2 gm Sodium Chloride 0.9% [Normal Saline] 50 ml IV Q12H 01/04/18 08:08 Magnesium Sulfate/Water [Magnesium Sulfate 2 GM in Water 50 ML] 2 gm Premix Bag 1 bag IV ONETIME 01/04/18 08:37 Docusate Sodium/Sennosides [Senna Plus] 1 tab PO BID PRN 01/04/18 08:45 Sodium Chloride 0.9% [Normal Saline] 1,000 ml IV ASDIRECTED 01/04/18 09:00 Magnesium Oxide 400 mg PO BID 01/05/18 05:00 BASIC METABOLIC PANEL,BMP [CHEM] Timed CBC WITH AUTO DIFF [HEME] Timed MAGNESIUM [CHEM] Timed - Plan Plan:: ASSESSMENT AND PLAN MENINGITIS-severe headache with neck stiffness, no decreased level of consciousness or focal neurologic findings. CSF results are indeterminate. Possible viral versus Lyme disease, less likely bacterial or herpes. Mild to moderate improvement since admission, headache better than yesterday but continues to experience nausea. -CSF culture pending -CSF PCR for herpes, Lymes, and enterovirus pending -IV fluids for hydration -Admit to ICU for close monitoring -Pain medication as needed -Neuro checks every 4 hours -Acyclovir 800 mg IV every 8 hours pending herpes virus PCR -IV vancomycin and Rocephin 2 g every 12 hours pending CSF culture results MAINTENANCE ISSUES -DVT prophylaxis; not required -GI prophylaxis; not indicated -Mccurdy catheter; not indicated -Nutrition; regular diet -Nicotine dependence; 14 g nicotine patch CODE STATUS-FULL CODE ADMISSION STATUS-patient will be admitted to inpatient status, expect at least a 2 night hospital stay for evaluation and management of problems as outlined above. At the time of this admission I do not reasonably expected evaluation and management of this problem will require more than a 96 hour hospital stay. DISPOSITION-anticipate discharge to home after the hospital stay. PRIMARY CARE PROVIDER-
[2018-01-04] MEDS ORDERED: Sodium Chloride 0.9% 1,000 ML IV SCH (08:45)
[2018-01-04] MEDS: Magnesium Oxide 400 MG Tab PO SCH ×2 (09:05→21:08)
[2018-01-04] MEDS ORDERED: Magnesium Sulfate/Water 2 GM in Premix Bag 1 BAG IV ONE (10:00)
[2018-01-04] MEDS: Nicotine 14 MG/24 Hr Patch TRDERM SCH (10:06)
[2018-01-04] MEDS ORDERED: cefTRIAXone 2 GM in Sodium Chloride 0.9% 50 ML IV SCH (14:00)
[2018-01-04] MEDS ORDERED: HYDROmorphone 0.5 MG/0.5 ML Syringe IVPUSH ONE (15:45)
[2018-01-04] MEDS ORDERED: LORazepam 2 MG/ML SDV IVPUSH PRN (17:08)
[2018-01-04] MEDS: Ketorolac 30 MG/ML SDV IVPUSH PRN (21:07)
[2018-01-05] MEDS: cefTRIAXone 2 GM in Sodium Chloride 0.9% 50 ML IV SCH ×2 (01:51→22:33)
[2018-01-05] MEDS: Ketorolac 30 MG/ML SDV IVPUSH PRN ×3 (04:08→23:38)
[2018-01-05] MEDS: Acetaminophen 325 MG Tab PO PRN ×2 (04:58→14:15)
[2018-01-05] MEDS: Nicotine 14 MG/24 Hr Patch TRDERM SCH (08:50)
[2018-01-05] MEDS: Magnesium Oxide 400 MG Tab PO SCH ×2 (08:55→22:33)
[2018-01-05] MEDS: Bisacodyl 10 MG Supp RECTAL PRN ×2 (08:58→18:23)
--- NOTE | 2018-01-05 09:39 | PCM.PN ---
- General Info Date of Service: 01/05/18 Subjective Update: Ms. Gatica shown further improvement over the last 24 hours, nausea has essentially resolved but she is dealing with some constipation. Headache was more severe again last night but significantly improved this morning, denies any neurologic symptoms other than the headache. CSF culture is negative after 24 hours. Functional Status: Reports: Pain Controlled, Tolerating Diet, Ambulating, Urinating - Review of Systems General: Denies: Fever, Chills Pulmonary: Reports: No Symptoms Cardiovascular: Reports: No Symptoms Gastrointestinal: Reports: No Symptoms Neurological: Reports: Headache. Denies: Confusion, Dizziness, Numbness, Trouble Speaking, Difficulty Walking, Weakness - Patient Data Vitals - Most Recent: Last Vital Signs Temp 95.9 F 01/05/18 07:49 Pulse 55 L 01/05/18 07:49 Resp 16 01/05/18 07:49 BP 115/74 01/05/18 07:49 Pulse Ox 98 01/05/18 07:49 Weight - Most Recent: 194 lb 1.6 oz I&O - Last 24 Hours: Intake & Output 01/04/18 01/05/18 01/05/18 22:59 06:59 14:59 Intake Total 1355 1115 116 Output Total 513 827 3693 Balance 1030 215 -959 Lab Results Last 24 Hours: Laboratory Results - last 24 hr 01/05/18 01/05/18 01/05/18 Range/Units 04:45 04:45 04:45 WBC 8.0 (4.5-11.0) K/uL RBC 3.71 (3.30-5.50) M/uL Hgb 11.3 L (12.0-15.0) g/dL Hct 36.0 (36.0-48.0) % MCV 97 (80-98) fL MCH 31 (27-31) pg MCHC 31 L (32-36) % Plt Count 246 (150-400) K/uL Neut % (Auto) 69 H (36-66) % Lymph % (Auto) 19 L (24-44) % [place] % (Auto) 6 (2-6) % Eos % (Auto) 6 H (2-4) % Baso % (Auto) 1 (0-1) % Sodium 141 (140-148) mmol/L Potassium 4.1 (3.6-5.2) mmol/L Chloride 107 (100-108) mmol/L Carbon Dioxide 28 (21-32) mmol/L Anion Gap 6.1 (5.0-14.0) mmol/L BUN 6 L (7-18) mg/dL Creatinine 0.7 (0.6-1.0) mg/dL Est Cr Clr Drug Dosing 123.48 mL/min Estimated GFR (MDRD) > 60 (>60) Glucose 95 (74-106) mg/dL Calcium 8.4 L (8.5-10.1) mg/dL Magnesium 2.0 (1.8-2.4) mg/dL Vancomycin Trough 11.9 (10.0-20.0) ug/mL [place] Results Last 24 Hours: Microbiology 01/03/18 12:36 Gram Stain - Final Cerebral Spinal Fluid CSF Culture - Preliminary NO GROWTH AFTER 1 DAY Med Orders - Current: Current Medications Acetaminophen (Tylenol) 650 mg PO Q4H PRN PRN Reason: Pain (Mild 1-3)/fever Last Admin: 01/05/18 04:58 Dose: 650 mg Bisacodyl (Dulcolax) 10 mg RECTAL BID PRN PRN Reason: Constipation Last Admin: 01/05/18 08:58 Dose: 10 mg Hydromorphone HCl (Dilaudid) 0.5 mg IVPUSH Q2H PRN PRN Reason: Pain Last Admin: 01/04/18 21:43 Dose: 0.5 mg Acyclovir 800 mg/ Sodium (Chloride) 116 mls @ 116 mls/hr IV Q8H [facility] Last Admin: 01/05/18 07:52 Dose: 116 mls/hr Ceftriaxone Sodium 2 gm/ (Sodium Chloride) 50 mls @ 100 mls/hr IV Q24H [facility] Ketorolac Tromethamine (Toradol) 30 mg IVPUSH Q6H PRN PRN Reason: Headache/Pain Stop: 01/09/18 20:50 Last Admin: 01/05/18 04:08 Dose: 30 mg Lorazepam (Ativan) 0.5 mg IVPUSH Q2H PRN PRN Reason: Nausea Last Admin: 01/04/18 17:21 Dose: 0.5 mg Magnesium Hydroxide (Milk Of Magnesia) 30 ml PO Q12H PRN PRN Reason: Constipation Magnesium Oxide (Magnesium Oxide) 400 mg PO BID [facility] Last Admin: 01/05/18 08:55 Dose: 400 mg Nicotine (Habitrol) 14 mg TRDERM DAILY [facility] Last Admin: 01/05/18 08:50 Dose: Not Given Ondansetron HCl (Zofran) 4 mg IV Q4H PRN PRN Reason: Nausea/Vomiting Last Admin: 01/04/18 14:12 Dose: 4 mg Senna/Docusate Sodium (Senna Plus) 1 tab PO BID PRN PRN Reason: Constipation Last Admin: 01/05/18 04:58 Dose: 1 tab Sodium Chloride (Saline Flush) 10 ml FLUSH ASDIRECTED PRN PRN Reason: Keep Vein Open Last Admin: 01/04/18 17:23 Dose: 10 ml Discontinued Medications Hydromorphone HCl (Dilaudid) 0.5 mg IVPUSH ONETIME ONE Stop: 01/03/18 11:12 Last Admin: 01/03/18 11:22 Dose: 0.5 mg Hydromorphone HCl (Dilaudid) 0.5 mg IVPUSH ONETIME ONE Stop: 01/03/18 13:43 Last Admin: 01/03/18 13:54 Dose: 0.5 mg Hydromorphone HCl (Dilaudid) 0.5 mg IVPUSH ONETIME ONE Stop: 01/04/18 15:46 Last Admin: 01/04/18 16:20 Dose: 0.5 mg Sodium Chloride (Normal Saline) 1,000 mls @ 999 mls/hr IV ONETIME ONE Stop: 01/03/18 12:11 Last Admin: 01/03/18 11:23 Dose: 999 mls/hr Ceftriaxone Sodium 1 gm/ (Sodium Chloride) 50 mls @ 100 mls/hr IV ONETIME ONE Stop: 01/03/18 13:41 Last Admin: 01/03/18 13:17 Dose: 100 mls/hr Ceftriaxone Sodium 1 gm/ (Sodium Chloride) 50 mls @ 100 mls/hr IV ONETIME ONE Stop: 01/03/18 13:50 Last Admin: 01/03/18 13:55 Dose: 100 mls/hr Vancomycin HCl 2 gm/ Sodium (Chloride) 500 mls @ 250 mls/hr IV ONETIME ONE Stop: 01/03/18 16:44 Last Admin: 01/03/18 14:39 Dose: 250 mls/hr Sodium Chloride (Normal Saline) 1,000 mls @ 125 mls/hr IV ASDIRECTED [facility] Last Admin: 01/04/18 04:00 Dose: 125 mls/hr Ceftriaxone Sodium 2 gm/ (Sodium Chloride) 50 mls @ 100 mls/hr IV Q12H [facility] Last Admin: 01/05/18 01:51 Dose: 100 mls/hr Vancomycin HCl 1.25 gm/ Sodium (Chloride) 250 mls @ 167 mls/hr IV Q8H [facility] Last Admin: 01/05/18 05:45 Dose: 167 mls/hr Magnesium Sulfate 2 gm/ Premix 50 mls @ 25 mls/hr IV ONETIME ONE Stop: 01/04/18 11:59 Last Admin: 01/04/18 09:05 Dose: 25 mls/hr Sodium Chloride (Normal Saline) 1,000 mls @ 50 mls/hr IV ASDIRECTED [facility] Last Admin: 01/05/18 04:09 Dose: 50 mls/hr Vancomycin HCl 1.75 gm/ Sodium (Chloride) 250 mls @ 167 mls/hr IV Q8H [facility] Vancomycin HCl (Vancomycin) 1 gm IV .PHARMACY TO DOSE [facility] Stop: 01/03/18 16:00 - Exam General: Alert, Oriented, Cooperative, Mild Distress Lungs: Clear to Auscultation, Normal Respiratory Effort Cardiovascular: Regular Rate, Regular Rhythm, No Murmurs GI/Abdominal Exam: Soft, Non-Tender, No Organomegaly, No Distention Back Exam: Normal Inspection, Full Range of Motion Extremities: Non-Tender, No Pedal Edema - Problem List Review Problem List Initiated/Reviewed/Updated: Yes - My Orders Last 24 Hours: My Active Orders 01/04/18 08:37 Docusate Sodium/Sennosides [Senna Plus] 1 tab PO BID PRN 01/04/18 09:00 Magnesium Oxide 400 mg PO BID 01/04/18 17:08 LORazepam [Ativan] 0.5 mg IVPUSH Q2H PRN 01/04/18 20:50 Ketorolac [Toradol] 30 mg IVPUSH Q6H PRN 01/05/18 08:50 Bisacodyl [Dulcolax] 10 mg RECTAL BID PRN 01/05/18 09:32 Patient Status [ADT] Routine Convert IV to Saline Lock [OM.PC] Routine 01/05/18 09:45 cefTRIAXone [Rocephin] 2 gm Sodium Chloride 0.9% [Normal Saline] 50 ml IV Q24H - Plan Plan:: ASSESSMENT AND PLAN MENINGITIS-headache improved since admission, CSF culture negative thus far -CSF PCR for herpes, Lymes, and enterovirus pending -IV fluids for hydration -Admit to ICU for close monitoring -Pain medication as needed -Neuro checks every 4 hours -Acyclovir 800 mg IV every 8 hours pending herpes virus PCR results -Discontinue IV vancomycin -Change Rocephin to 2 g every 24 hours MAINTENANCE ISSUES -DVT prophylaxis; not required -GI prophylaxis; not indicated -Mccurdy catheter; not indicated -Nutrition; regular diet -Nicotine dependence; 14 g nicotine patch CODE STATUS-FULL CODE ADMISSION STATUS-patient will be admitted to inpatient status, expect at least a 2 night hospital stay for evaluation and management of problems as outlined above. At the time of this admission I do not reasonably expected evaluation and management of this problem will require more than a 96 hour hospital stay. DISPOSITION-anticipate discharge to home after the hospital stay. PRIMARY CARE PROVIDER-
[2018-01-05] MEDS: Magnesium Hydroxide 400 MG/5 ML Susp 30 ML Cup PO PRN ×2 (10:00→20:13)
[2018-01-05] MEDS: Ondansetron 4 MG/2 ML SDV IV PRN (15:00)
[2018-01-05] MEDS ORDERED: Sertraline 50 MG Tab ONE (22:01)
[2018-01-05] MEDS: Sertraline 50 MG Tab PO SCH (22:32)
--- NOTE | 2018-01-05 22:46 | PCM.SN ---
- Free Text/Narrative Note: Time 21:15 call from 2 N. nursing, request for medication s/o: Patient requests restarting Zoloft 150 mg at bedtime a: Depression p; order Zoloft 150 mg by mouth daily at bedtime start tonight Continue present plan of care
--- NOTE | 2018-01-06 01:43 | PROC ---
DATE OF PROCEDURE: 01/03/2018 NAME OF PROCEDURE: Spinal tap. INDICATION: This patient is in the emergency room on the 03 of January with a complaint of fever, headache, and general discomfort. I have been asked to do a spinal tap. I discussed the risks and benefits of this with the patient. She is understanding of these and has signed an informed consent. TECHNIQUE: She was placed in a lateral position. Her back was prepped with Betadine x3. A 22-gauge spinal needle was then placed at approximately L3-4 after a local injection of 1% Xylocaine. Spinal fluid has somewhat of a pink color to it. Four test tubes are used to collect 1 mL each. These will be sent to the lab. Her pressures are tested, and I believe they were 37. The needle was then removed and a Band-Aid applied to the puncture site. The patient tolerated the procedure well. There were no complications. Currently, her vital signs are stable. Her color is pink. She is alert and oriented. Shows no signs of any problems from the spinal tap. Jadiel Uribe CRNA /[id number]
[2018-01-06] MEDS: HYDROmorphone 0.5 MG/0.5 ML Syringe IVPUSH PRN (01:59)
[2018-01-06] MEDS: Ondansetron 4 MG/2 ML SDV IV PRN (07:45)
[2018-01-06] MEDS: Ketorolac 30 MG/ML SDV IVPUSH PRN (07:45)
[2018-01-06] MEDS: Nicotine 14 MG/24 Hr Patch TRDERM SCH (09:20)
[2018-01-06] MEDS: Magnesium Oxide 400 MG Tab PO SCH ×2 (09:47→21:48)
--- NOTE | 2018-01-06 10:01 | PCM.PN ---
- General Info Date of Service: 01/06/18 Subjective Update: Ms. Gatica has continued to experience slow improvement in symptoms, she is been afebrile and hemodynamically stable. Persistent headache but not as severe as it had been on initial presentation. Functional Status: Reports: Pain Controlled, Tolerating Diet, Ambulating, Urinating - Review of Systems General: Denies: Fever, Weakness, Chills Pulmonary: Reports: No Symptoms Cardiovascular: Reports: No Symptoms Gastrointestinal: Reports: No Symptoms Neurological: Reports: Headache. Denies: Confusion, Numbness, Paresthesia, Pre- Existing Deficit - Patient Data Vitals - Most Recent: Last Vital Signs Temp 96.1 F 01/06/18 07:34 Pulse 65 01/06/18 07:34 Resp 16 01/06/18 07:34 BP 112/68 01/06/18 07:34 Pulse Ox 100 01/06/18 07:34 Weight - Most Recent: 193 lb 3.2 oz I&O - Last 24 Hours: Intake & Output 01/05/18 01/06/18 01/06/18 22:59 06:59 14:59 Intake Total 7848 294 9849 Balance 1077 769 8525 [place] Results Last 24 Hours: Microbiology 01/03/18 12:36 Gram Stain - Final Cerebral Spinal Fluid CSF Culture - Preliminary NO GROWTH AFTER 2 DAYS Med Orders - Current: Current Medications Acetaminophen (Tylenol) 650 mg PO Q4H PRN PRN Reason: Pain (Mild 1-3)/fever Last Admin: 01/05/18 14:15 Dose: 650 mg Amphetamine/Dextroamphetamine (Adderall) 10 mg PO DAILY [facility] Bisacodyl (Dulcolax) 10 mg RECTAL BID PRN PRN Reason: Constipation Last Admin: 01/05/18 18:23 Dose: 10 mg Hydromorphone HCl (Dilaudid) 0.5 mg IVPUSH Q2H PRN PRN Reason: Pain Last Admin: 01/06/18 01:59 Dose: 0.5 mg Acyclovir 800 mg/ Sodium (Chloride) 116 mls @ 116 mls/hr IV Q8H [facility] Last Admin: 01/06/18 07:44 Dose: 116 mls/hr Ceftriaxone Sodium 2 gm/ (Sodium Chloride) 50 mls @ 100 mls/hr IV Q24H [facility] Last Admin: 01/05/18 22:33 Dose: 100 mls/hr Ketorolac Tromethamine (Toradol) 30 mg IVPUSH Q6H PRN PRN Reason: Headache/Pain Stop: 01/09/18 20:50 Last Admin: 01/06/18 07:45 Dose: 30 mg Lorazepam (Ativan) 0.5 mg IVPUSH Q2H PRN PRN Reason: Nausea Last Admin: 01/04/18 17:21 Dose: 0.5 mg Magnesium Hydroxide (Milk Of Magnesia) 30 ml PO Q12H PRN PRN Reason: Constipation Last Admin: 01/05/18 20:13 Dose: 30 ml Magnesium Oxide (Magnesium Oxide) 400 mg PO BID [facility] Last Admin: 01/06/18 09:47 Dose: Not Given Nicotine (Habitrol) 14 mg TRDERM DAILY [facility] Last Admin: 01/06/18 09:20 Dose: Not Given Ondansetron HCl (Zofran) 4 mg IV Q4H PRN PRN Reason: Nausea/Vomiting Last Admin: 01/06/18 07:45 Dose: 4 mg Senna/Docusate Sodium (Senna Plus) 1 tab PO BID PRN PRN Reason: Constipation Last Admin: 01/05/18 04:58 Dose: 1 tab Sertraline HCl (Zoloft) 150 mg PO BEDTIME [facility] Last Admin: 01/05/18 22:32 Dose: 150 mg Sodium Chloride (Saline Flush) 10 ml FLUSH ASDIRECTED PRN PRN Reason: Keep Vein Open Last Admin: 01/04/18 17:23 Dose: 10 ml Discontinued Medications Hydromorphone HCl (Dilaudid) 0.5 mg IVPUSH ONETIME ONE Stop: 01/03/18 11:12 Last Admin: 01/03/18 11:22 Dose: 0.5 mg Hydromorphone HCl (Dilaudid) 0.5 mg IVPUSH ONETIME ONE Stop: 01/03/18 13:43 Last Admin: 01/03/18 13:54 Dose: 0.5 mg Hydromorphone HCl (Dilaudid) 0.5 mg IVPUSH ONETIME ONE Stop: 01/04/18 15:46 Last Admin: 01/04/18 16:20 Dose: 0.5 mg Sodium Chloride (Normal Saline) 1,000 mls @ 999 mls/hr IV ONETIME ONE Stop: 01/03/18 12:11 Last Admin: 01/03/18 11:23 Dose: 999 mls/hr Ceftriaxone Sodium 1 gm/ (Sodium Chloride) 50 mls @ 100 mls/hr IV ONETIME ONE Stop: 01/03/18 13:41 Last Admin: 01/03/18 13:17 Dose: 100 mls/hr Ceftriaxone Sodium 1 gm/ (Sodium Chloride) 50 mls @ 100 mls/hr IV ONETIME ONE Stop: 01/03/18 13:50 Last Admin: 01/03/18 13:55 Dose: 100 mls/hr Vancomycin HCl 2 gm/ Sodium (Chloride) 500 mls @ 250 mls/hr IV ONETIME ONE Stop: 01/03/18 16:44 Last Admin: 01/03/18 14:39 Dose: 250 mls/hr Sodium Chloride (Normal Saline) 1,000 mls @ 125 mls/hr IV ASDIRECTED [facility] Last Admin: 01/04/18 04:00 Dose: 125 mls/hr Ceftriaxone Sodium 2 gm/ (Sodium Chloride) 50 mls @ 100 mls/hr IV Q12H [facility] Last Admin: 01/05/18 01:51 Dose: 100 mls/hr Vancomycin HCl 1.25 gm/ Sodium (Chloride) 250 mls @ 167 mls/hr IV Q8H [facility] Last Admin: 01/05/18 05:45 Dose: 167 mls/hr Magnesium Sulfate 2 gm/ Premix 50 mls @ 25 mls/hr IV ONETIME ONE Stop: 01/04/18 11:59 Last Admin: 01/04/18 09:05 Dose: 25 mls/hr Sodium Chloride (Normal Saline) 1,000 mls @ 50 mls/hr IV ASDIRECTED [facility] Last Admin: 01/05/18 04:09 Dose: 50 mls/hr Vancomycin HCl 1.75 gm/ Sodium (Chloride) 250 mls @ 167 mls/hr IV Q8H [facility] Sertraline HCl (Zoloft) Confirm Administered Dose 150 mg .ROUTE .STK-MED ONE Stop: 01/05/18 22:02 Last Admin: 01/06/18 02:31 Dose: Not Given Vancomycin HCl (Vancomycin) 1 gm IV .PHARMACY TO DOSE [facility] Stop: 01/03/18 16:00 - Exam General: Alert, Oriented, Cooperative, Mild Distress Lungs: Clear to Auscultation, Normal Respiratory Effort Cardiovascular: Regular Rate, Regular Rhythm, No Murmurs GI/Abdominal Exam: Soft, Non-Tender, No Organomegaly, No Distention Neurological: No New Focal Deficit - Problem List Review Problem List Initiated/Reviewed/Updated: Yes - My Orders Last 24 Hours: My Active Orders 01/05/18 09:32 Patient Status [ADT] Routine Convert IV to Saline Lock [OM.PC] Routine 01/05/18 21:00 cefTRIAXone [Rocephin] 2 gm Sodium Chloride 0.9% [Normal Saline] 50 ml IV Q24H 01/06/18 10:00 Amphetamine/Dextroamphetamine [Adderall] 10 mg PO DAILY - Plan Plan:: ASSESSMENT AND PLAN MENINGITIS-headache improved since admission, CSF culture negative thus far. CPR for herpes, lines, and enterovirus pending -Saline lock IV. -Medical surgical status -Pain medication as needed -Acyclovir 800 mg IV every 8 hours pending herpes virus PCR results -Rocephin to 2 g every 24 hours MAINTENANCE ISSUES -DVT prophylaxis; not required -GI prophylaxis; not indicated -Mccurdy catheter; not indicated -Nutrition; regular diet -Nicotine dependence; 14 g nicotine patch CODE STATUS-FULL CODE ADMISSION STATUS-patient will be admitted to inpatient status, expect at least a 2 night hospital stay for evaluation and management of problems as outlined above. At the time of this admission I do not reasonably expected evaluation and management of this problem will require more than a 96 hour hospital stay. DISPOSITION-anticipate discharge to home after the hospital stay. PRIMARY CARE PROVIDER-
[2018-01-06] MEDS: Amphetamine/Dextroamphetamine Salts 10 MG Tab PO SCH (10:34)
[2018-01-06] MEDS: Magnesium Hydroxide 400 MG/5 ML Susp 30 ML Cup PO PRN (17:00)
[2018-01-06] MEDS: cefTRIAXone 2 GM in Sodium Chloride 0.9% 50 ML IV SCH (21:49)
[2018-01-06] MEDS: Sertraline 50 MG Tab PO SCH (21:49)
[2018-01-07] MEDS: Acetaminophen 325 MG Tab PO PRN (07:51)
[2018-01-07] MEDS: Amphetamine/Dextroamphetamine Salts 10 MG Tab PO SCH (08:41)
[2018-01-07] MEDS: Nicotine 14 MG/24 Hr Patch TRDERM SCH (08:41)
[2018-01-07] MEDS: Magnesium Oxide 400 MG Tab PO SCH (08:41)
--- NOTE | 2018-01-07 09:15 | PCM.DCSUM1 ---
Discharge Summary - Hospital Course Brief History: Ms. Gatica is a 27-year-old woman who was admitted through the emergency department with severe headache secondary to meningitis. - Discharge Data Discharge Date: 01/07/18 Discharge Disposition: Home, Self-Care 01 Condition: Fair - Discharge Diagnosis/Problem(s) (1) Aseptic meningitis SNOMED Code(s): 922869782 ICD Code: G03.0 - NONPYOGENIC MENINGITIS Status: Acute Current Visit: Yes - Patient Summary/Data Hospital Course: Ms. Gatica is a 27-year-old woman who is admitted through the emergency department with severe headache and neck stiffness secondary to meningitis. She felt well until yesterday, about midday began to notice symptoms of headache and some nausea. Symptoms progressed through the day and she presented to the emergency department last night for further evaluation. At that time her white blood cell count was only modestly elevated and she felt better after IV fluids and pain medication. Was felt likely that she had Lyme disease, she was placed on doxycycline 100 mg by mouth twice a day. Symptoms further progressed during the night to where her headache has become extremely severe and she came back to the emergency department this morning for reevaluation. White blood cell count has now normalized, she has been afebrile with normal vital signs. CT scan of the head was obtained and showed no significant abnormalities. Lumbar puncture has been performed, showing mild elevation in protein level and white blood cell count, and a glucose level of 63. Gram stain shows no obvious bacteria, culture pending. She has had exposure to Lyme disease in the past but denies recent tick bites. She denies recent exposure to anybody with similar symptoms and has not traveled outside of [place] for some time. On admission she was given IV fluids for hydration as well as pain medication and medication as needed for nausea. While in the emergency department she had been started on IV vancomycin as well as ceftriaxone. After admission she was also placed on acyclovir IV. CSF cultures did return negative with no growth and the vancomycin was discontinued and the dose of ceftriaxone decreased. Further CSF had been sent out for PCR for enterovirus, herpes, and Lyme's disease. She slowly improved during hospital stay with less headache although it had not totally resolved by the time of discharge. Appetite improved and nausea resolved she was able to eat without significant difficulty. PCR for enterovirus did come back positive and she was felt to have had probable aseptic meningitis secondary to enterovirus. PCR for Lyme disease and herpes are pending at the time of discharge. Activity will be as tolerated and she will resume her usual diet. Follow-up appointment will be scheduled with her primary care provider within one week. - Discharge Plan *PRESCRIPTION DRUG MONITORING PROGRAM REVIEWED*: Not Applicable *COPY OF PRESCRIPTION DRUG MONITORING REPORT IN PATIENT JUSTO: Not Applicable Prescriptions/Med Rec: Ketorolac [Toradol] 10 mg PO Q6H PRN #12 tab PRN Reason: Pain Home Medications: Home Meds Sertraline HCl 150 mg PO DAILY 03/09/17 [History] Dextroamphetamine/Amphetamine [Adderall 10 mg Tablet] 10 mg PO DAILY 01/02/18 [ History] Ketorolac [Toradol] 10 mg PO Q6H PRN #12 tab 01/07/18 [Rx] Referrals: Felicitas Morales, [employer] [Ordering Only Provider] - - Discharge Summary/Plan Comment DC Time >30 min.: No - Patient Data Vitals - Most Recent: Last Vital Signs Temp 96.4 F 01/07/18 07:44 Pulse 74 01/07/18 07:44 Resp 16 01/07/18 07:44 BP 110/64 01/07/18 07:44 Pulse Ox 99 01/07/18 07:44 Weight - Most Recent: 193 lb 3.2 oz I&O - Last 24 hours: Intake & Output 01/06/18 01/07/18 01/07/18 22:59 06:59 14:59 Intake Total 1232 1000 Balance 1232 1000 Lab Results - Last 24 hrs: Laboratory Results - last 24 hr 01/03/18 Range/Units 14:05 Enterovirus RNA RT-PCR Positive H (Negative) PATTY Results - Last 24 hrs: Microbiology 01/03/18 12:36 Gram Stain - Final Cerebral Spinal Fluid CSF Culture - Final NO GROWTH AFTER 3 DAYS Med Orders - Current: Current Medications Acetaminophen (Tylenol) 650 mg PO Q4H PRN PRN Reason: Pain (Mild 1-3)/fever Last Admin: 01/07/18 07:51 Dose: 650 mg Amphetamine/Dextroamphetamine (Adderall) 10 mg PO DAILY [facility] Last Admin: 01/07/18 08:41 Dose: Not Given Bisacodyl (Dulcolax) 10 mg RECTAL BID PRN PRN Reason: Constipation Last Admin: 01/05/18 18:23 Dose: 10 mg Hydromorphone HCl (Dilaudid) 0.5 mg IVPUSH Q2H PRN PRN Reason: Pain Last Admin: 01/06/18 01:59 Dose: 0.5 mg Acyclovir 800 mg/ Sodium (Chloride) 116 mls @ 116 mls/hr IV Q8H [facility] Last Admin: 01/07/18 07:31 Dose: 116 mls/hr Ceftriaxone Sodium 2 gm/ (Sodium Chloride) 50 mls @ 100 mls/hr IV Q24H [facility] Last Admin: 01/06/18 21:49 Dose: 100 mls/hr Ketorolac Tromethamine (Toradol) 30 mg IVPUSH Q6H PRN PRN Reason: Headache/Pain Stop: 01/09/18 20:50 Last Admin: 01/06/18 07:45 Dose: 30 mg Lorazepam (Ativan) 0.5 mg IVPUSH Q2H PRN PRN Reason: Nausea Last Admin: 01/04/18 17:21 Dose: 0.5 mg Magnesium Hydroxide (Milk Of Magnesia) 30 ml PO Q12H PRN PRN Reason: Constipation Last Admin: 01/06/18 17:00 Dose: 30 ml Magnesium Oxide (Magnesium Oxide) 400 mg PO BID [facility] Last Admin: 01/07/18 08:41 Dose: Not Given Nicotine (Habitrol) 14 mg TRDERM DAILY [facility] Last Admin: 01/07/18 08:41 Dose: Not Given Ondansetron HCl (Zofran) 4 mg IV Q4H PRN PRN Reason: Nausea/Vomiting Last Admin: 01/06/18 07:45 Dose: 4 mg Senna/Docusate Sodium (Senna Plus) 1 tab PO BID PRN PRN Reason: Constipation Last Admin: 01/05/18 04:58 Dose: 1 tab Sertraline HCl (Zoloft) 150 mg PO BEDTIME [facility] Last Admin: 01/06/18 21:49 Dose: 150 mg Sodium Chloride (Saline Flush) 10 ml FLUSH ASDIRECTED PRN PRN Reason: Keep Vein Open Last Admin: 01/04/18 17:23 Dose: 10 ml Discontinued Medications Hydromorphone HCl (Dilaudid) 0.5 mg IVPUSH ONETIME ONE Stop: 01/03/18 11:12 Last Admin: 01/03/18 11:22 Dose: 0.5 mg Hydromorphone HCl (Dilaudid) 0.5 mg IVPUSH ONETIME ONE Stop: 01/03/18 13:43 Last Admin: 01/03/18 13:54 Dose: 0.5 mg Hydromorphone HCl (Dilaudid) 0.5 mg IVPUSH ONETIME ONE Stop: 01/04/18 15:46 Last Admin: 01/04/18 16:20 Dose: 0.5 mg Sodium Chloride (Normal Saline) 1,000 mls @ 999 mls/hr IV ONETIME ONE Stop: 01/03/18 12:11 Last Admin: 01/03/18 11:23 Dose: 999 mls/hr Ceftriaxone Sodium 1 gm/ (Sodium Chloride) 50 mls @ 100 mls/hr IV ONETIME ONE Stop: 01/03/18 13:41 Last Admin: 01/03/18 13:17 Dose: 100 mls/hr Ceftriaxone Sodium 1 gm/ (Sodium Chloride) 50 mls @ 100 mls/hr IV ONETIME ONE Stop: 01/03/18 13:50 Last Admin: 01/03/18 13:55 Dose: 100 mls/hr Vancomycin HCl 2 gm/ Sodium (Chloride) 500 mls @ 250 mls/hr IV ONETIME ONE Stop: 01/03/18 16:44 Last Admin: 01/03/18 14:39 Dose: 250 mls/hr Sodium Chloride (Normal Saline) 1,000 [facility]ls [facility] Last Admin: 01/04/18 04:00 Dose: 125 mls/hr Ceftriaxone Sodium 2 gm/ (Sodium Chloride) 50 mls @ 100 mls/hr IV Q12H [facility] Last Admin: 01/05/18 01:51 Dose: 100 mls/hr Vancomycin HCl 1.25 gm/ Sodium (Chloride) 250 mls @ 167 mls/hr IV Q8H [facility] Last Admin: 01/05/18 05:45 Dose: 167 mls/hr Magnesium Sulfate 2 gm/ Premix 50 mls @ 25 mls/hr IV ONETIME ONE Stop: 01/04/18 11:59 Last Admin: 01/04/18 09:05 Dose: 25 mls/hr Sodium Chloride (Normal Saline) 1,000 mls @ [facility] Last Admin: 01/05/18 04:09 Dose: 50 mls/hr Vancomycin HCl 1.75 gm/ Sodium (Chloride) 250 mls @ 167 mls/hr IV Q8H [facility] Sertraline HCl (Zoloft) Confirm Administered Dose 150 mg .ROUTE .STK-MED ONE Stop: 01/05/18 22:02 Last Admin: 01/06/18 02:31 Dose: Not Given Vancomycin HCl (Vancomycin) 1 gm IV .PHARMACY TO DOSE [facility] Stop: 01/03/18 16:00 - Exam General: Reports: Alert, Oriented, Cooperative, No Acute Distress Lungs: Reports: Clear to Auscultation, Normal Respiratory Effort Cardiovascular: Reports: Regular Rate, Regular Rhythm, No Murmurs GI/Abdominal Exam: Soft, Non-Tender, No Organomegaly, No Distention
== END 2018-01-07 09:40 | disposition home or self-care (01) | DRG 75 ==
LOC: JP.ED 10:43 → JP.ICU 14:24 → JP.MS 01-05 13:18
PROVIDERS: ADMIT Hospitalist; ATTEND Hospitalist
PROC: 009U3ZX Drainage of Spinal Canal, Percutaneous Approach, Diagnostic (ICD-10-PCS; principal; 2018-01-03)
DX: A87.0 Enteroviral meningitis (principal); A93.8 Other specified arthropod-borne viral fevers; F17.210 Nicotine dependence, cigarettes, uncomplicated; F32.9 Major depressive disorder, single episode, unspecified; H54.7 Unspecified visual loss
CPT/HCPCS: 36415; 70450; 70450-26; 80048; 80053; 80202; 81001; 82945; 83735; 84157; 84703; 85025; 87070; 87205; 87476; 87498; 87529; 87529-59; 89050; 96361; 96365; 96375; 96376; 99284-25; 99285-25; A9270-GY; J0133; J0696; J0780; J1170; J1200; J1885; J2060; J2405; J3370; J3475; J3490; J7030; J7040; J7050; J7120